=== PATIENT | male | born 1955 | race Caucasian/White ===

== ENCOUNTER 2024-07-16 07:37 | Day surgery (SDC) | payer MEDICARE, OTHER ==
[2024-07-16] MEDS ORDERED: Midazolam 1 MG/ML 2 ML SDV IV ONE (07:38)
[2024-07-16] MEDS ORDERED: Propofol 200 MG/20 ML SDV IV ONE (07:38)
[2024-07-16] MEDS ORDERED: Lidocaine 2% 100 MG/5 ML Syringe IVPUSH ONE (07:38)
[2024-07-16] MEDS ORDERED: Sodium Chloride 0.9% 10 ML Syringe FLUSH PRN (07:45)
[2024-07-16] MEDS: Lactated Ringers 1,000 ML IV SCH (09:10)
[2024-07-16] MEDS: Simethicone Drops 40 MG/0.6 ML 30 ML Bottle ONE (09:27)
[2024-07-16 11:19] VITALS: BP 132/85; PULSE 98
== END 2024-07-16 11:12 | disposition home or self-care (01) ==
LOC: FB.SDS 07:37
PROVIDERS: ATTEND Surgery
DX: Z12.11 Encounter for screening for malignant neoplasm of colon (principal); D12.6 Benign neoplasm of colon, unspecified; K63.5 Polyp of colon; K57.30 Diverticulosis of large intestine without perforation or abscess without bleeding; E66.9 Obesity, unspecified; Z87.891 Personal history of nicotine dependence
CPT/HCPCS: 00811; 88305; A9270-GY; J2250; J2704; J7120